=== PATIENT | male | born 1960 | race Caucasian/White ===

== ENCOUNTER 2018-02-20 01:23 | Emergency (ER) | payer OTHER ==
[~2018-02-20] VITALS: Ht 165.1 cm; Wt 78.0 kg
[~2018-02-20 01:23] MED LIST: ASPIR 8181 MG PO; BACTRIM DS TAB1 EACH PO; DIPHENHIST50 MG PO; FINASTERIDE5 MG PO; FLEXERIL PO; HUMULIN N100 UNIT/1 SUBQ; HUMULINR100 SUBQ; HYDROCHLOROTHIA25 M2 PO; HYDROCODONE-AP1 EAC6 PO; IBUPROFEN 800800 M1 PO; PREDNISONE50 MG PO; TOPROL XL25 MG PO
[2018-02-20] MEDS ORDERED: TYLENOL325 MG PO (01:35)
[2018-02-20] MEDS ORDERED: BUSPIRONE HCL10 MG PO (01:39)
[2018-02-20 02:00] LABS: ABSOLUTE BASOPHILS 0.1 thou/uL (0.0-0.2); ABSOLUTE EOSINOPHILS 0.5 thou/uL (0.0-0.7); ABSOLUTE LYMPHOCYTES 1.8 thou/uL (0.8-5.3); ABSOLUTE MONOCYTES 0.8 thou/uL (0.0-1.2); BASOPHILS 1.5 %; EOSINOPHILS 5.1 %; HEMATOCRIT 35.3 % (42.0-52.0); HEMOGLOBIN 11.6 gm/dL (14.0-18.0); LYMPHOCYTES 19.3 %; MCH 25.8 pg (26.0-34.0); MCHC 32.9 g/dL (28.0-37.0); MCV 78.5 fL (80.0-100.0); MONOCYTES 8.4 %; MPV 8.4 fl. (7.2-11.1); NUCLEATED RBCS 0 /100WBC; PLATELET COUNT* 256 thou/uL (150-400); POLYS 65.7 %; RDW-CV 14.8 % (10.5-14.5); WBC 9.1 thou/uL (4.0-11.0)
[2018-02-20 02:18] LABS: CALCIUM 8.9 mg/dL (8.5-10.1); POTASSIUM 3.5 mmol/L (3.5-5.1)
[2018-02-20 02:22] LABS: ALBUMIN 3.4 g/dL (3.4-5.0); TOTAL BILIRUBIN 0.5 mg/dL (<0.1-1.0); TOTAL PROTEIN 7.1 g/dL (6.4-8.2)
[2018-02-20] MEDS ORDERED: HYDROXYZINE HCL25 M1 PO (02:55)
[2018-02-20 03:19] VITALS: BP 146/89
== END 2018-02-20 03:54 | disposition home or self-care (01) ==
LOC: M.ERS 01:23
PROVIDERS: Emergency Medicine
DX: F41.9 Anxiety disorder, unspecified (principal); F51.01 Primary insomnia; I10 Essential (primary) hypertension; J45.909 Unspecified asthma, uncomplicated; E11.9 Type 2 diabetes mellitus without complications; Z88.8 Allergy status to other drugs, medicaments and biological substances; Z88.1 Allergy status to other antibiotic agents; Z91.041 Radiographic dye allergy status; Z88.0 Allergy status to penicillin; Z79.4 Long term (current) use of insulin

== ENCOUNTER 2018-02-27 04:26 | Emergency (ER) | payer OTHER ==
[~2018-02-27] VITALS: Ht 165.1 cm; Wt 78.0 kg
[~2018-02-27 04:26] MED LIST changes: +BUSPIRONE HCL10 MG PO; +HYDROXYZINE HCL25 M1 PO; +TYLENOL325 MG PO
[2018-02-27 05:05] LABS: ABSOLUTE BASOPHILS 0.1 thou/uL (0.0-0.2); ABSOLUTE EOSINOPHILS 0.5 thou/uL (0.0-0.7); ABSOLUTE LYMPHOCYTES 1.3 thou/uL (0.8-5.3); ABSOLUTE MONOCYTES 0.8 thou/uL (0.0-1.2); ABSOLUTE NEUTROPHILS 7.2 thou/uL (1.6-8.1); BASOPHILS 0.8 %; EOSINOPHILS 5.3 %; HEMATOCRIT 38.1 % (42.0-52.0); HEMOGLOBIN 12.5 gm/dL (14.0-18.0); LYMPHOCYTES 12.8 %; MCH 25.8 pg (26.0-34.0); MCHC 32.8 g/dL (28.0-37.0); MCV 78.8 fL (80.0-100.0); MONOCYTES 7.9 %; MPV 8.1 fl. (7.2-11.1); NUCLEATED RBCS 0 /100WBC; PLATELET COUNT* 286 thou/uL (150-400); POLYS 73.2 %; RBC 4.84 mil/uL (4.50-6.00); WBC 9.8 thou/uL (4.0-11.0)
[2018-02-27 05:13] LABS: ANION GAP 13 mmol/L (7-16); BUN 11 mg/dL (7-18); CALCIUM 8.9 mg/dL (8.5-10.1); CHLORIDE 100 mmol/L (98-107); CO2 26 mmol/L (21-32); GLUCOSE 110 mg/dL (70-99); POTASSIUM 3.4 mmol/L (3.5-5.1); SODIUM 139 mmol/L (136-145)
[2018-02-27 05:20] LABS: ALBUMIN 3.7 g/dL (3.4-5.0); ALKALINE PHOSPHATASE 346 U/L (46-116); LIPASE 71 U/L (73-393); SGOT 61 U/L (15-37); SGPT 128 U/L (30-65); TOTAL BILIRUBIN 0.6 mg/dL (<0.1-1.0); TOTAL PROTEIN 7.7 g/dL (6.4-8.2); TROPONIN-I LEVEL <0.06 ng/mL (<0.06)
[2018-02-27] MEDS ORDERED: FLAGYL500 MG PO (06:55)
[2018-02-27] MEDS ORDERED: CIPROFLOXACIN500 M1 PO (06:55)
[2018-02-27 07:06] VITALS: BP 148/99
--- NOTE | 2018-02-27 08:37 | EKG ---
[place] [address] ELECTROCARDIOGRAM REPORT Name: WOOJACK ANTONION [id number] Admission: 02/27/18 Attend Phys: Discharge: 02/27/18 Date of : 60 Report #: [id number] THIS REPORT FOR: //name// [facility] ED Test Date: 2018-02-27 Test Time: 04:47:20 Pat Name: JACK BERKOWITZ Department: Room: Gender: M Recreation Activities Coordinator: ELIAS Jay : 1960 Requested By: Deangelo Sharp Order Number: [id number] MD: Saman Silva Measurements Intervals [place] Rate: 77 P: 47 GA: 141 QRS: 36 QRSD: 90 T: 31 QT: 368 QTc: 417 Interpretive Statements Sinus rhythm No previous ECG available for comparison Electronically Signed On 02-27-2018 8:37:14 CDT by Saman Silva [email or web address] <ELECTRONICALLY SIGNED> By: Saman Silva MD, [facility] 02/27/18 0837 [id number] Saman Silva MD, FACC /EPI
== END 2018-02-27 07:06 | disposition home or self-care (01) ==
LOC: M.ERS 04:26
PROVIDERS: Family Medicine
DX: R10.9 Unspecified abdominal pain (principal); I10 Essential (primary) hypertension; J45.909 Unspecified asthma, uncomplicated; E11.9 Type 2 diabetes mellitus without complications; Z79.4 Long term (current) use of insulin; Z88.8 Allergy status to other drugs, medicaments and biological substances; Z88.1 Allergy status to other antibiotic agents; Z91.041 Radiographic dye allergy status; Z88.0 Allergy status to penicillin

== ENCOUNTER 2018-03-06 17:29 | Emergency (ER) | payer OTHER ==
[~2018-03-06] VITALS: Ht 195.6 cm; Wt 78.0 kg
[~2018-03-06 17:29] MED LIST changes: +CIPROFLOXACIN500 M1 PO; +FLAGYL500 MG PO
[2018-03-06] MEDS ORDERED: FLEXERIL PO (18:13)
[2018-03-06] MEDS ORDERED: XANAX 0.5 MG0.5 MG PO (18:13)
[2018-03-06 18:27] VITALS: BP 130/85
== END 2018-03-06 18:27 | disposition home or self-care (01) ==
LOC: M.ERS 17:29
DX: F41.9 Anxiety disorder, unspecified (principal); I10 Essential (primary) hypertension; E11.9 Type 2 diabetes mellitus without complications; J45.909 Unspecified asthma, uncomplicated; Z91.041 Radiographic dye allergy status; Z88.0 Allergy status to penicillin; Z88.1 Allergy status to other antibiotic agents; Z88.8 Allergy status to other drugs, medicaments and biological substances

== ENCOUNTER 2018-03-09 17:10 | Observation (INO) | payer OTHER ==
[~2018-03-09] VITALS: Ht 162.6 cm; Wt 78.9 kg
[~2018-03-09 17:10] MED LIST changes: +XANAX 0.5 MG0.5 MG PO
[2018-03-09 17:21] VITALS: BP 147/86
[2018-03-09 17:58] LABS: ABSOLUTE BASOPHILS 0.1 thou/uL (0.0-0.2); ABSOLUTE EOSINOPHILS 0.6 thou/uL (0.0-0.7); ABSOLUTE MONOCYTES 0.8 thou/uL (0.0-1.2); ABSOLUTE NEUTROPHILS 6.2 thou/uL (1.6-8.1); BASOPHILS 0.6 %; EOSINOPHILS 6.9 %; HEMATOCRIT 35.3 % (42.0-52.0); HEMOGLOBIN 11.6 gm/dL (14.0-18.0); LYMPHOCYTES 11.2 %; MCH 25.5 pg (26.0-34.0); MCHC 32.8 g/dL (28.0-37.0); MCV 77.6 fL (80.0-100.0); MONOCYTES 8.8 %; MPV 8.6 fl. (7.2-11.1); NUCLEATED RBCS 0 /100WBC; PLATELET COUNT* 242 thou/uL (150-400); POLYS 72.5 %; RBC 4.55 mil/uL (4.50-6.00); RDW-CV 14.7 % (10.5-14.5); WBC 8.6 thou/uL (4.0-11.0)
[2018-03-09 18:07] LABS: ANION GAP 9 mmol/L (7-16); BUN 14 mg/dL (7-18); CALCIUM 8.2 mg/dL (8.5-10.1); CHLORIDE 100 mmol/L (98-107); CO2 28 mmol/L (21-32); GLUCOSE 140 mg/dL (70-99); POTASSIUM 3.2 mmol/L (3.5-5.1); SODIUM 137 mmol/L (136-145)
[2018-03-09 18:18] LABS: ALBUMIN 3.1 g/dL (3.4-5.0); ALKALINE PHOSPHATASE 368 U/L (46-116); NT-PRO BRAIN NAT PEPTIDE 71 pg/mL (<300); SGOT 37 U/L (15-37); SGPT 60 U/L (30-65); TOTAL BILIRUBIN 0.5 mg/dL (<0.1-1.0); TOTAL PROTEIN 6.8 g/dL (6.4-8.2); TROPONIN-I LEVEL <0.06 ng/mL (<0.06)
[2018-03-09 18:19] LABS: APTT 25.4 Seconds (25.0-31.3); INR 1.1; PROTIME 10.7 Seconds (9.20-11.50)
[2018-03-09 18:50] LABS: URINE BILIRUBIN NEGATIVE (Negative); URINE BLOOD NEGATIVE (Negative); URINE CLARITY CLEAR; URINE COLOR YELLOW; URINE GLUCOSE-RANDOM NEGATIVE (Negative); URINE KETONES TRACE (Negative); URINE LEUKOCYTES-REFLEX NEGATIVE (Negative); URINE NITRITE-REFLEX NEGATIVE (Negative); URINE PROTEIN NEGATIVE (Negative); URINE UROBILINOGEN 0.2 E.U./dl (0.2-1.0)
--- NOTE | 2018-03-09 19:41 | NUR ---
PATIENT REQUESTING FOOD AND FLUIDS. FOOD WAS PROVIDED.
[2018-03-09 20:02] VITALS: BP 153/87
[2018-03-09 23:34] VITALS: BP 133/79
[2018-03-10 03:56] VITALS: BP 155/77
--- NOTE | 2018-03-10 06:17 | NUR ---
PATIENT ADMITTED TO THE FLOOR AT BEGINNING OF SHIFT FOR RT LEG SWELLING, DVT. ALERT AND ORIENTED X 4, UP AD SHARAN. DENIES COMPLAINTS OF PAIN OR DISCOMFORT. HOME MEDS STARTED. BED IN LOW POSITION, CALL LIGHT IN REACH.
[2018-03-10 07:52] VITALS: BP 146/79
--- NOTE | 2018-03-10 09:14 | EKG ---
[place] [address] ELECTROCARDIOGRAM REPORT Name: JACK BERKOWITZ Room: [address] IN [facility].#: [id number] Admission: 03/09/18 Attend Phys: Lenin Arzola Discharge: Date of : 60 Report #: [id number] THIS REPORT FOR: //name// [facility] ED Test Date: 2018-03-09 Test Time: 17:36:36 Pat Name: JACK BERKOWITZ Department: Room: Gender: Medical Assistant Supervisor: Pierre PHILLIP : 1960 Requested By: Deangelo Sharp Order Number: [id number] MD: Saman Silva Measurements Intervals [place] Rate: 73 P: 39 NV: 142 QRS: 35 QRSD: 95 T: 27 QT: 376 QTc: 415 Interpretive Statements Sinus rhythm Compared to ECG 02/27/2018 04:47:20 No significant changes Electronically Signed On 03-10-2018 9:14:33 CDT by Saman Silva [email or web address] <ELECTRONICALLY SIGNED> By: Saman Silva MD, [facility] 03/10/18 0914 [id number] Saman Silva MD, [facility] /EPI
[2018-03-10] MEDS ORDERED: ENOXAPARIN80 MG/0.1 SUBQ (10:14)
--- NOTE | 2018-03-10 11:12 | NUR ---
VSS, ASSUMED CARE IN THE AM, ASSESSMENT PERFORMED AND CHARTED,, FALL PRECAUTIONS IN PLACE AND CALL LIGHT IN REACH, PT IS A&O4 AND ON RA AND TRACING SR ON THE MONITOR AND UP AD SHARAN, PT HAS PAIN IN LOWER LEFT LEG, PT HAS THROMBS, WILL FOLLOW WITH PLAN OF CARE.
[2018-03-10 11:50] VITALS: BP 134/87
--- NOTE | 2018-03-10 12:12 | NUR ---
Prescription from Dr. Mcbride for Lovenox 80 mg BID x 12 days called into [facility] [place] [address], coupon from [employer] printed off for pt, cost per the coupon is $144.83.
[2018-03-10 12:14] VITALS: BP 134/87
--- NOTE | 2018-03-10 13:22 | NUR ---
Pt is A&O. Resides at home with his mom. Independent with ADLs. No DME. No hx of HH or SNF. Pt discharging on Lovenox and plans to f/u at tomorrow for a procedure. [facility] Pt provided a discount coupon from [employer], 24 syringes for $144, Pt states that he is able to afford this cost. Pt stated that initiated a [place] Medicaid ida for him, Pt's legal address is in [place], [place], Pt just stays with his mom to assist her. Family in room and will provide dc transportation.
[2018-03-10 14:02] VITALS: BP 134/87
--- NOTE | 2018-03-10 14:45 | NUR ---
VSS, RECEIEVED D/C INSTRUCTIONS, FILLED OUT D/C INSTRUCTIONS. PROVITED MEDICATIONS SCRIPT AND INFO AHEET, PT IV AND TELE MONITOR TAKEN OUT, GATHERED ALL PT BELONGINGS AND PLACED WITH PT, HOURLY ROUNAS COMPLETED AND WILL FOLLOW WITH PLAN OF CARE AND HOURLY ROUNDS COMPLETED.
== END 2018-03-10 14:40 | disposition home or self-care (01) ==
LOC: M.ERS 17:10 → M.2W 18:39 → M.TBA-ER 18:39 → M.2W 19:40
PROVIDERS: Family Medicine; ADMIT Internal Medicine
DX: I82.402 Acute embolism and thrombosis of unspecified deep veins of left lower extremity (principal); C20 Malignant neoplasm of rectum; C78.7 Secondary malignant neoplasm of liver and intrahepatic bile duct; M79.89 Other specified soft tissue disorders; E11.9 Type 2 diabetes mellitus without complications; I10 Essential (primary) hypertension; E87.6 Hypokalemia; J45.909 Unspecified asthma, uncomplicated

== ENCOUNTER 2018-03-20 05:10 | Emergency (ER) | payer OTHER ==
[~2018-03-20] VITALS: Ht 172.7 cm; Wt 78.9 kg
[~2018-03-20 05:10] MED LIST changes: +ENOXAPARIN80 MG/0.1 SUBQ
[2018-03-20 05:46] LABS: ABSOLUTE EOSINOPHILS 0.4 thou/uL (0.0-0.7); ABSOLUTE LYMPHOCYTES 1.1 thou/uL (0.8-5.3); ABSOLUTE MONOCYTES 0.7 thou/uL (0.0-1.2); ABSOLUTE NEUTROPHILS 5.2 thou/uL (1.6-8.1); BASOPHILS 0.3 %; EOSINOPHILS 5.1 %; HEMATOCRIT 35.1 % (42.0-52.0); HEMOGLOBIN 11.4 gm/dL (14.0-18.0); LYMPHOCYTES 14.8 %; MCH 25.6 pg (26.0-34.0); MCHC 32.6 g/dL (28.0-37.0); MCV 78.5 fL (80.0-100.0); MONOCYTES 9.4 %; MPV 8.7 fl. (7.2-11.1); NUCLEATED RBCS 0 /100WBC; PLATELET COUNT* 367 thou/uL (150-400); POLYS 70.4 %; RBC 4.47 mil/uL (4.50-6.00); WBC 7.4 thou/uL (4.0-11.0)
[2018-03-20 05:50] LABS: CALCIUM 8.9 mg/dL (8.5-10.1); POTASSIUM 3.9 mmol/L (3.5-5.1)
[2018-03-20 05:51] LABS: URINE BILIRUBIN NEGATIVE (Negative); URINE BLOOD NEGATIVE (Negative); URINE CLARITY CLEAR; URINE COLOR YELLOW; URINE GLUCOSE-RANDOM NEGATIVE (Negative); URINE KETONES TRACE (Negative); URINE LEUKOCYTES-REFLEX NEGATIVE (Negative); URINE NITRITE-REFLEX NEGATIVE (Negative); URINE PROTEIN NEGATIVE (Negative); URINE UROBILINOGEN 0.2 E.U./dl (0.2-1.0)
[2018-03-20 05:55] LABS: ALBUMIN 3.1 g/dL (3.4-5.0); TOTAL BILIRUBIN 0.5 mg/dL (<0.1-1.0); TOTAL PROTEIN 7.7 g/dL (6.4-8.2)
[2018-03-20] MEDS ORDERED: VALIUM5 MG PO (07:03)
[2018-03-20 07:34] VITALS: BP 151/88
== END 2018-03-20 07:38 | disposition home or self-care (01) ==
LOC: M.ERS 05:10
PROVIDERS: Emergency Medicine
DX: R18.8 Other ascites (principal); I10 Essential (primary) hypertension; E11.9 Type 2 diabetes mellitus without complications; Z88.1 Allergy status to other antibiotic agents; Z88.0 Allergy status to penicillin; Z91.041 Radiographic dye allergy status; Z88.8 Allergy status to other drugs, medicaments and biological substances

== ENCOUNTER 2018-03-25 14:19 | Emergency (ER) | payer OTHER ==
[~2018-03-25] VITALS: Ht 165.1 cm; Wt 78.9 kg
[~2018-03-25 14:19] MED LIST changes: +VALIUM5 MG PO
[2018-03-25 14:33] VITALS: BP 129/80
== END 2018-03-25 15:00 | disposition home or self-care (01) ==
LOC: M.ERS 14:19
DX: L25.8 Unspecified contact dermatitis due to other agents (principal); T45.515A Adverse effect of anticoagulants, initial encounter; Y92.9 Unspecified place or not applicable; I10 Essential (primary) hypertension; E11.9 Type 2 diabetes mellitus without complications; Z85.038 Personal history of other malignant neoplasm of large intestine; Z85.118 Personal history of other malignant neoplasm of bronchus and lung

== ENCOUNTER 2018-03-27 00:49 | Emergency (ER) | payer OTHER ==
[~2018-03-27] VITALS: Ht 165.1 cm; Wt 79.1 kg
[2018-03-27] MEDS ORDERED: OXYCODONE HCL 55 MG PO (02:03)
[2018-03-27 02:13] VITALS: BP 127/85
== END 2018-03-27 02:13 | disposition home or self-care (01) ==
LOC: M.ERS 00:49
DX: F41.9 Anxiety disorder, unspecified (principal); Z71.1 Person with feared health complaint in whom no diagnosis is made; I10 Essential (primary) hypertension; E10.9 Type 1 diabetes mellitus without complications; Z88.0 Allergy status to penicillin; Z91.041 Radiographic dye allergy status; Z88.1 Allergy status to other antibiotic agents; Z88.8 Allergy status to other drugs, medicaments and biological substances; Z85.038 Personal history of other malignant neoplasm of large intestine

== ENCOUNTER 2018-04-01 01:08 | Emergency (ER) | payer OTHER ==
[~2018-04-01 01:08] MED LIST changes: +OXYCODONE HCL 55 MG PO
[2018-04-01 07:13] LABS: URINE CLARITY CLEAR; URINE COLOR YELLOW; URINE GLUCOSE-RANDOM NEGATIVE (Negative); URINE PROTEIN NEGATIVE (Negative)
[2018-04-01 07:14] LABS: URINE BILIRUBIN NEGATIVE (Negative); URINE BLOOD NEGATIVE (Negative); URINE KETONES NEGATIVE (Negative); URINE LEUKOCYTES-REFLEX NEGATIVE (Negative); URINE NITRITE-REFLEX NEGATIVE (Negative)
== END 2018-04-01 02:22 | disposition home or self-care (01) ==
LOC: M.ERS 01:08
DX: R07.89 Other chest pain (principal)

== ENCOUNTER 2018-04-07 16:10 | Emergency (ER) | payer OTHER ==
[~2018-04-07] VITALS: Ht 165.1 cm; Wt 77.1 kg
[2018-04-07] MEDS ORDERED: [UNRECOGNIZED DRUG - OTHER] (16:22)
[2018-04-07] MEDS ORDERED: FLUOROURAC1 GM/20 ML IV (16:34)
[2018-04-07] MEDS ORDERED: OXALIPLATIN50 MG IV (16:34)
[2018-04-07] MEDS ORDERED: LEUCOVORIN CALCI PO (16:35)
[2018-04-07 17:11] LABS: HEMATOCRIT 33.7 % (42.0-52.0); MCH 25.7 pg (26.0-34.0); MCHC 32.8 g/dL (28.0-37.0); MCV 78.4 fL (80.0-100.0); MPV 8.4 fl. (7.2-11.1); NUCLEATED RBCS 0 /100WBC; PLATELET COUNT* 331 thou/uL (150-400); RDW-CV 14.9 % (10.5-14.5); WBC 8.6 thou/uL (4.0-11.0)
[2018-04-07 17:20] LABS: CALCIUM 8.6 mg/dL (8.5-10.1); CREATININE 1.1 mg/dL (0.6-1.3); POTASSIUM 3.7 mmol/L (3.5-5.1)
[2018-04-07 17:22] LABS: APTT 31.5 Seconds (25.0-31.3); PROTIME 9.9 Seconds (9.20-11.50)
[2018-04-07 17:27] LABS: ALBUMIN 2.9 g/dL (3.4-5.0); TOTAL BILIRUBIN 0.7 mg/dL (<0.1-1.0); TOTAL PROTEIN 7.1 g/dL (6.4-8.2)
[2018-04-07 17:32] LABS: ABSOLUTE EOSINOPHILS 0.1 thou/uL (0.0-0.7); ABSOLUTE LYMPHOCYTES 0.7 thou/uL (0.8-5.3); ABSOLUTE MONOCYTES 0.1 thou/uL (0.0-1.2); ABSOLUTE NEUTROPHILS 7.7 thou/uL (1.6-8.1); PLATELET ESTIMATE ADEQUATE
[2018-04-07 17:56] VITALS: BP 131/75
== END 2018-04-07 17:57 | disposition home or self-care (01) ==
LOC: M.ERS 16:10
PROVIDERS: Physician Assistant
DX: K92.2 Gastrointestinal hemorrhage, unspecified (principal); I10 Essential (primary) hypertension; E11.9 Type 2 diabetes mellitus without complications; Z85.038 Personal history of other malignant neoplasm of large intestine; Z85.118 Personal history of other malignant neoplasm of bronchus and lung; Z88.8 Allergy status to other drugs, medicaments and biological substances; Z88.1 Allergy status to other antibiotic agents; Z91.041 Radiographic dye allergy status; Z88.0 Allergy status to penicillin

== ENCOUNTER 2018-04-10 14:02 | Emergency (ER) | payer OTHER ==
[~2018-04-10] VITALS: Ht 165.1 cm; Wt 74.4 kg
[~2018-04-10 14:02] MED LIST changes: +FLUOROURAC1 GM/20 ML IV; +LEUCOVORIN CALCI PO; +OXALIPLATIN50 MG IV; +[UNRECOGNIZED DRUG - OTHER]
[2018-04-10] MEDS ORDERED: COMPAZINE10 MG PO (14:35)
[2018-04-10] MEDS ORDERED: ONDANSETRON HCL4 M2 PO (14:38)
[2018-04-10] MEDS ORDERED: VALIUM5 MG PO (14:38)
[2018-04-10 14:46] VITALS: BP 133/81
== END 2018-04-10 14:48 | disposition home or self-care (01) ==
LOC: M.ERS 14:02
DX: R11.0 Nausea (principal); Z76.0 Encounter for issue of repeat prescription; E11.9 Type 2 diabetes mellitus without complications; I10 Essential (primary) hypertension; Z88.1 Allergy status to other antibiotic agents; Z91.041 Radiographic dye allergy status; Z88.0 Allergy status to penicillin; Z85.038 Personal history of other malignant neoplasm of large intestine; Z88.8 Allergy status to other drugs, medicaments and biological substances

== ENCOUNTER 2018-04-30 11:42 | Emergency (ER) | payer OTHER ==
[~2018-04-30] VITALS: Ht 165.1 cm; Wt 74.8 kg
[~2018-04-30 11:42] MED LIST changes: +COMPAZINE10 MG PO; +ONDANSETRON HCL4 M2 PO
[2018-04-30 12:24] VITALS: BP 143/101
== END 2018-04-30 12:25 | disposition home or self-care (01) ==
LOC: M.ERS 11:42
DX: Z48.01 Encounter for change or removal of surgical wound dressing (principal); I10 Essential (primary) hypertension; E11.9 Type 2 diabetes mellitus without complications; Z86.718 Personal history of other venous thrombosis and embolism; Z85.038 Personal history of other malignant neoplasm of large intestine; Z85.118 Personal history of other malignant neoplasm of bronchus and lung; Z88.8 Allergy status to other drugs, medicaments and biological substances; Z88.1 Allergy status to other antibiotic agents; Z91.041 Radiographic dye allergy status; Z88.0 Allergy status to penicillin

== ENCOUNTER 2018-06-04 11:02 | Emergency (ER) | payer OTHER ==
[~2018-06-04] VITALS: Ht 165.1 cm; Wt 74.4 kg
[2018-06-04 11:59] LABS: CALCIUM 9.2 mg/dL (8.5-10.1); CREATININE 0.8 mg/dL (0.6-1.3); POTASSIUM 3.5 mmol/L (3.5-5.1)
[2018-06-04 12:41] VITALS: BP 151/95
== END 2018-06-04 12:58 | disposition home or self-care (01) ==
LOC: M.ERS 11:02
PROVIDERS: Emergency Medicine Emergency Medical Services
DX: Z71.1 Person with feared health complaint in whom no diagnosis is made (principal); I10 Essential (primary) hypertension; E11.9 Type 2 diabetes mellitus without complications; Z85.038 Personal history of other malignant neoplasm of large intestine; Z86.718 Personal history of other venous thrombosis and embolism; Z88.8 Allergy status to other drugs, medicaments and biological substances; Z88.1 Allergy status to other antibiotic agents; Z91.041 Radiographic dye allergy status; Z88.0 Allergy status to penicillin

== ENCOUNTER 2018-06-18 10:53 | Emergency (ER) | payer OTHER ==
[~2018-06-18] VITALS: Ht 165.1 cm; Wt 72.6 kg
[2018-06-18] MEDS ORDERED: NEULASTA6 MG/0.61 SUBQ (11:06)
[2018-06-18 12:15] VITALS: BP 116/79
== END 2018-06-18 12:16 | disposition home or self-care (01) ==
LOC: M.ERS 10:53
DX: M54.2 Cervicalgia (principal); I10 Essential (primary) hypertension; Z85.038 Personal history of other malignant neoplasm of large intestine; Z85.118 Personal history of other malignant neoplasm of bronchus and lung; Z88.1 Allergy status to other antibiotic agents; Z88.0 Allergy status to penicillin; Z88.8 Allergy status to other drugs, medicaments and biological substances; Z91.041 Radiographic dye allergy status; W10.8XXA Fall (on) (from) other stairs and steps, initial encounter; Y93.89 Activity, other specified; Y92.89 Other specified places as the place of occurrence of the external cause; Y99.8 Other external cause status; E11.9 Type 2 diabetes mellitus without complications

== ENCOUNTER 2018-06-22 00:03 | Emergency (ER) | payer OTHER ==
[~2018-06-22] VITALS: Ht 162.6 cm; Wt 70.3 kg
[~2018-06-22 00:03] MED LIST changes: +NEULASTA6 MG/0.61 SUBQ
[2018-06-22 00:49] VITALS: BP 158/97
== END 2018-06-22 00:50 | disposition home or self-care (01) ==
LOC: M.ERS 00:03
DX: S30.1XXA Contusion of abdominal wall, initial encounter (principal); I10 Essential (primary) hypertension; E11.9 Type 2 diabetes mellitus without complications; Z85.038 Personal history of other malignant neoplasm of large intestine; Z91.041 Radiographic dye allergy status; Z88.1 Allergy status to other antibiotic agents; Z88.0 Allergy status to penicillin; Z88.8 Allergy status to other drugs, medicaments and biological substances; X58.XXXA Exposure to other specified factors, initial encounter; Y93.89 Activity, other specified; Y92.89 Other specified places as the place of occurrence of the external cause; Y99.8 Other external cause status

== ENCOUNTER 2018-07-12 13:44 | Emergency (ER) | payer OTHER ==
[~2018-07-12] VITALS: Ht 167.6 cm; Wt 70.3 kg
[2018-07-12] MEDS ORDERED: XARELTO15 MG PO (14:12)
[2018-07-12 14:55] VITALS: BP 153/88
== END 2018-07-12 14:55 | disposition home or self-care (01) ==
LOC: M.ERS 13:44
DX: D17.21 Benign lipomatous neoplasm of skin and subcutaneous tissue of right arm (principal); I10 Essential (primary) hypertension; E11.9 Type 2 diabetes mellitus without complications; Z85.038 Personal history of other malignant neoplasm of large intestine; Z85.118 Personal history of other malignant neoplasm of bronchus and lung; Z85.048 Personal history of other malignant neoplasm of rectum, rectosigmoid junction, and anus; Z88.1 Allergy status to other antibiotic agents; Z88.0 Allergy status to penicillin; Z91.041 Radiographic dye allergy status; Z88.8 Allergy status to other drugs, medicaments and biological substances

== ENCOUNTER 2018-10-07 05:17 | Emergency (ER) | payer OTHER ==
[~2018-10-07] VITALS: Ht 165.1 cm; Wt 70.3 kg
[~2018-10-07 05:17] MED LIST changes: +XARELTO15 MG PO
[2018-10-07] MEDS ORDERED: NEULASTA6 MG/0.6 M SUBQ (05:28)
[2018-10-07] MEDS ORDERED: ENOXAPARIN60 MG/0.1 SUBQ (05:29)
[2018-10-07 06:16] LABS: HEMATOCRIT 40.1 % (42.0-52.0); HEMOGLOBIN 12.8 gm/dL (14.0-18.0); MCH 29.9 pg (26.0-34.0); MCHC 32.1 g/dL (28.0-37.0); MCV 93.1 fL (80.0-100.0); MPV 8.1 fl. (7.2-11.1); NUCLEATED RBCS 0 /100WBC; PLATELET COUNT* 113 thou/uL (150-400); RDW-CV 16.6 % (10.5-14.5); WBC 13.4 thou/uL (4.0-11.0)
[2018-10-07 06:42] LABS: CREATININE 0.8 mg/dL (0.6-1.3); POTASSIUM 4.6 mmol/L (3.5-5.1)
[2018-10-07 06:45] LABS: ABSOLUTE EOSINOPHILS 0.1 thou/uL (0.0-0.7); ABSOLUTE LYMPHOCYTES 1.1 thou/uL (0.8-5.3); ABSOLUTE MONOCYTES 1.2 thou/uL (0.0-1.2); ANISOCYTOSIS 1+; PLATELET ESTIMATE DECREASED; POIKILOCYTOSIS 1+
[2018-10-07 06:46] LABS: ALBUMIN 3.2 g/dL (3.4-5.0); TOTAL BILIRUBIN 0.7 mg/dL (<0.1-1.0); TOTAL PROTEIN 7.1 g/dL (6.4-8.2)
[2018-10-07 08:45] LABS: INR 1.1
[2018-10-07 08:55] VITALS: BP 148/79
== END 2018-10-07 08:55 | disposition home or self-care (01) ==
LOC: M.ERS 05:17
PROVIDERS: Emergency Medicine
DX: K59.00 Constipation, unspecified (principal); I10 Essential (primary) hypertension; E11.9 Type 2 diabetes mellitus without complications; Z86.718 Personal history of other venous thrombosis and embolism; Z85.038 Personal history of other malignant neoplasm of large intestine; Z85.118 Personal history of other malignant neoplasm of bronchus and lung; Z85.048 Personal history of other malignant neoplasm of rectum, rectosigmoid junction, and anus; Z88.0 Allergy status to penicillin; Z88.1 Allergy status to other antibiotic agents; Z88.8 Allergy status to other drugs, medicaments and biological substances; Z91.041 Radiographic dye allergy status

== ENCOUNTER 2018-10-07 14:36 | Emergency (ER) | payer OTHER ==
[~2018-10-07] VITALS: Ht 165.1 cm; Wt 70.3 kg
[~2018-10-07 14:36] MED LIST changes: +ENOXAPARIN60 MG/0.1 SUBQ; +NEULASTA6 MG/0.6 M SUBQ
[2018-10-07 17:54] VITALS: BP 153/86
== END 2018-10-07 18:02 | disposition short-term general hospital (02) ==
LOC: M.ERS 14:36
DX: K56.609 Unspecified intestinal obstruction, unspecified as to partial versus complete obstruction (principal); R11.2 Nausea with vomiting, unspecified; I10 Essential (primary) hypertension; E11.9 Type 2 diabetes mellitus without complications; Z88.0 Allergy status to penicillin; Z88.1 Allergy status to other antibiotic agents; Z88.8 Allergy status to other drugs, medicaments and biological substances; Z91.041 Radiographic dye allergy status; Z85.038 Personal history of other malignant neoplasm of large intestine; Z85.048 Personal history of other malignant neoplasm of rectum, rectosigmoid junction, and anus; Z85.118 Personal history of other malignant neoplasm of bronchus and lung; Z86.718 Personal history of other venous thrombosis and embolism

== ENCOUNTER 2019-01-12 13:44 | Emergency (ER) | payer OTHER, MEDICAID ==
[~2019-01-12] VITALS: Ht 165.1 cm; Wt 67.6 kg
[2019-01-12 14:15] VITALS: BP 128/76
== END 2019-01-12 14:38 | disposition home or self-care (01) ==
LOC: M.ERS 13:44
DX: Z48.01 Encounter for change or removal of surgical wound dressing (principal); I10 Essential (primary) hypertension; E11.9 Type 2 diabetes mellitus without complications; Z88.8 Allergy status to other drugs, medicaments and biological substances; Z88.1 Allergy status to other antibiotic agents; Z91.041 Radiographic dye allergy status; Z88.0 Allergy status to penicillin; Z86.718 Personal history of other venous thrombosis and embolism; Z85.038 Personal history of other malignant neoplasm of large intestine